=== PATIENT | male | born 1970 | race Two or more races ===

== ENCOUNTER 2017-05-11 04:42 | Emergency (ER) | payer BC ==
--- NOTE | 2017-05-11 05:22 | ED Physician Chart ---
Chief Complaint/HPI - Patient Information Date Seen:: 05/11/17 Time Seen:: 05:10 Chief Complaint:: epigastric pain History of Present Illness:: Patient developed epigastric pain at 0100. He had no vomiting or diarrhea. Patient has no prior history of similar pain. He was given a powdery antiacid by his . Allergies:: Allergies Allergy/AdvReac Type Severity Reaction Status Date / Time No Known Allergies Allergy Verified 05/11/17 04:50 Vitals:: Vital Signs - 8 hr 05/11/17 05/11/17 04:45 05:01 Temp 97.5 F HR 62 RR 21 BP 188/100 166/96 O2 Sat % 98 Historian:: Patient Review:: Nurse's Note Reviewed Review of Systems - Review of Systems General/Constitutional: No fever, No chills Skin: No skin lesions Head: No headache Eyes: No loss of vision ENT: No earache Neck: No neck pain, No swelling Cardio Vascular: No chest pain, No palpitations Pulmonary: No SOB GI: No nausea, No vomiting, No diarrhea, Pain G/U: No dysuria Musculoskeletal: No bone or joint pain Endocrine: No polyuria, No polydipsia Psychiatric: No prior psych history Hematopoietic: No bruising Neurological: No syncope, No focal symptoms Past Medical History - Past Medical History Past Medical History: HTN Family History: Heart disease, Diabetes Melitus, HTN Social History: Other (smoke cigarettes and drinks alcohol only socially like at parties) Surgical History: other (cancer mandible) Medication: Reviewed Family Medical History - Family Member Mother History Unknown: Yes Physical Exam - Physical Examination General/Constitutional: Well-developed, well-nourished, Alert Head: Atraumatic Eyes: Lids, conjuctiva normal, PERRL Skin: Nl inspection, No rash, No skin lesions, No ecchymosis ENMT: External ears, nose nl Neck: No nuchal rigidity Respiratory: Nl effort/Exclusion, Clear to Auscultation Cardio Vascular: RRR GI: No organomegaly, No hernia, Normal BS's, Nondistended, No mass/bruits Other GI comments:: Epigastric tenderness Extremities: Normal digits & nails Neuro/Psych: Alert/oriented, No focal deficits Misc: Normal back Labs/Radiology/EKG Results - Lab Results Results: Laboratory Results - last 24 hr 05/11/17 05/11/17 05/11/17 05:42 05:42 05:48 POC Glucose 128 H Troponin I < 0.01 L Lipase 24 - EKG Interpretations Rate & Rhythm: normal sinus rhythm with a rate of 58 [place]: normal axis Comments:: Left ventricular hypertrophy by voltage criteria Assessment - Assessment General Assessment: Forgan better after 30 mL of Maalox orally ED Septic Shock - . Is Septic Shock (SBP<90, OR Lactate>4 mmol\L) present?: No - <6hrs of presentation: Vital Signs: Vital Signs - 8 hr 05/11/17 05/11/17 04:45 05:01 Temp 97.5 F HR 62 RR 21 BP 188/100 166/96 O2 Sat % 98 Reassessment (Disposition) - Reassessment Reassessment:: Patient encouraged to follow up with his private physician in a few days for his hypertension Reassessment Condition:: Improved - Diagnosis Diagnosis:: Gastritis - Patient Disposition Discharge/Transfer:: Home Condition at Disposition:: Stable, Improved
[2017-05-11] MEDS ORDERED: Maalox 30 mL Cup ONE (05:24)
[2017-05-11] MEDS: Maalox 30 mL Cup PO ONE (05:26)
== END 2017-05-11 06:50 | disposition home or self-care (01) ==
LOC: ER 04:42
DX: K29.70 Gastritis, unspecified, without bleeding (principal); I10 Essential (primary) hypertension; F17.210 Nicotine dependence, cigarettes, uncomplicated
CPT/HCPCS: 36415-UA; 82948-90; 83690-TC; 84484-TC; 93005